=== PATIENT | female | born 1965 | race Caucasian/White ===

== ENCOUNTER → 2016-10-15 | Outpatient (CLI) | payer OTHER ==
--- NOTE | 2016-10-15 11:23 | MM ---
Reason for exam: clinical finding. Last mammogram was performed 11 years and 9 months ago. History: Patient is postmenopausal. Physical Findings: Nurse did not find any significant physical abnormalities on exam. MG Diagnostic Mammo w CAD JOAQUÍN Bilateral CC and MLO view(s) were taken. Prior study comparison: February 21, 2008, mammogram. There are scattered fibroglandular densities. Asymmetric breast tissue in the left breast, complex on ultrasound. These results were verbally communicated with the patient and result sheet given to the patient on 10/15/16. ASSESSMENT: Suspicious, BI-RAD 4 RECOMMENDATION: Aspiration of the left breast. Called Dr. Wilson with mammographic findings and has scheduled an appointment for the patient for 11/01/16 at 1:[address] Ch. Aspiration scheduled for 10/25/16 at 8:00. PRELIMINARY REPORT CALLED AND FAXED TO DR. CH ON 10/15/16 /TP.
--- NOTE | 2016-10-15 11:25 | USB ---
Reason for exam: clinical finding. History: Patient is postmenopausal. US Breast BILAT Right breast ultrasound includes all four quadrants, the retroareolar region and axilla. Finding demonstrates a 3mm oval, cystic lesion at 2 o'clock, a 7 x 5 x 5mm cystic, complex lesion at 9 o'clock and a 5 x 4 x 4mm mixed lesion at 9 o'clock for which an aspiration/biopsy is recommended. Left breast ultrasound includes all four quadrants, the retroareolar region and axilla. Finding demonstrates a 15 x 11 x 11mm irregular, solid, hypoechoic lesion at 1 o'clock for which an aspiration is recommended. These results were verbally communicated with the patient and result sheet given to the patient on 10/15/16. ASSESSMENT: Suspicious, BI-RAD 4 RECOMMENDATION: Aspiration of both breasts. Called Dr. Wilson with mammographic findings and has scheduled an appointment for the patient for 11/01/16 at 1:[address] Ch. Aspiration scheduled for 10/25/16 at 8:00. PRELIMINARY REPORT CALLED AND FAXED TO DR. CH ON 10/15/16 /TP.
== END | disposition home or self-care (01) ==
LOC: RADMAMWWP 08:16
PROVIDERS: ATTEND Internal Medicine
DX: N63 Unspecified lump in breast (principal); Z80.3 Family history of malignant neoplasm of breast
CPT/HCPCS: 76641; G0204

== ENCOUNTER → 2019-04-18 | Outpatient (CLI) | payer OTHER ==
--- NOTE | 2019-04-19 11:16 | MM ---
Reason for exam: screening (asymptomatic). Last mammogram was performed 2 years and 6 months ago. History: Patient is postmenopausal. Family history of breast cancer in sister at age 42. Benign US breast fine needle asp of the left breast, October 25, 2016. Benign US breast fine needle asp of the right breast, October 25, 2016. Physical Findings: A clinical breast exam by your physician is recommended on an annual basis and results should be correlated with mammographic findings. MG Screening Mammo w CAD Bilateral CC and MLO view(s) were taken. Prior study comparison: October 25, 2016, bilateral MG diagnostic blanca BI wo CAD. October 15, 2016, bilateral MG diagnostic mammo w CAD JOAQUÍN. The breast tissue is heterogeneously dense. This may lower the sensitivity of mammography. Finding #1: There is a 6 mm circumscribed round mass located 2 cm from the nipple in the lower inner quadrant, anterior position of the left breast immedialy next to benign round 3mm calcification. Finding #2: There are typically benign round calcifications in both breasts. Previous mammotome biopsy in the right and left breast. New finding since October 25, 2016 and October 15, 2016. ASSESSMENT: Incomplete: need additional imaging evaluation, BI-RAD 0 RECOMMENDATION: Ultrasound of the left breast. [facility] will attempt to contact patient to return for ultrasound.
== END | disposition home or self-care (01) ==
LOC: RADMAMWWP 16:34
PROVIDERS: ATTEND Family Medicine
DX: Z12.31 Encounter for screening mammogram for malignant neoplasm of breast (principal)
CPT/HCPCS: 77067

== ENCOUNTER → 2019-04-27 | Outpatient (CLI) | payer OTHER ==
--- NOTE | 2019-04-27 12:51 | USB ---
Reason for exam: additional evaluation requested from abnormal screening. History: Patient is postmenopausal. Family history of breast cancer in sister at age 42. Benign US breast fine needle asp of the left breast, October 25, 2016. Benign US breast fine needle asp of the right breast, October 25, 2016. Physical Findings: Nurse Summary: left breast palpable 8 o'clock left brast 0.5 x 0.5cm, tender, movable (nurse ts). US Breast Workup Limited LT Technologist: Linda Hastings Left limited breast ultrasound including focal area of concern, retroareolar and axilla demonstrates a 0.6 x 0.6 x 0.5cm lesion at 8 o'clock, no post enhancement, cyst aspiration/biopsy recommended and a 0.3 x 0.1 x 0.3cm questionable calcification at 8 o'clock. These results were verbally communicated with the patient and result sheet given to the patient on 04/27/19. ASSESSMENT: Suspicious, BI-RAD 4 RECOMMENDATION: Ultrasound core biopsy of the left breast. (cyst aspiration can be attempted) Called with mammographic findings and has scheduled an appointment for the patient for 05/01/19 at 4:[address] Rojo. PRELIMINARY REPORT CALLED AND FAXED TO DR. ROJO ON 04/27/19.
== END | disposition home or self-care (01) ==
LOC: RADUSWWP 09:34
PROVIDERS: ATTEND Family Medicine
DX: R92.8 Other abnormal and inconclusive findings on diagnostic imaging of breast (principal)

== ENCOUNTER → 2019-05-09 | Day surgery (SDC) | payer OTHER ==
[2019-05-09 13:34] VITALS: RESP 16
[2019-05-09 14:51] VITALS: BP 114/70; PULSE 78; TEMP 98.3
--- NOTE | 2019-05-09 16:00 | USB ---
EXAMINATION TYPE: US breast aspiration single LT DATE OF EXAM: 05/09/2019 CLINICAL HISTORY: R98.2 abnormal mammogram. TECHNIQUE: Ultrasound guided cyst aspiration left breast COMPARISON: NONE FINDINGS: The ultrasound guided cyst aspiration procedure was explained to the patient. The risks, benefits, alternatives were discussed. An informed consent was then obtained. Timeout was performed. The patient was placed in supine positioning for imaging and for the procedure. The overlying skin was prepped with betadine and sterilely draped in usual sterile fashion. Lidocaine 1% was used as anesthetic into the skin and deeper breast tissue up to area of concern in the breast. Under ultrasound guidance, an 18-gauge spinal needle was advanced into the cyst like area and aspiration was performed. A minimal drop may have been aspirated. There was complete collapse of the suspected cyst under observation. Of this area appeared less suspicious than the comparison. However, septation was present in the level of concern within the patient was sufficient to warrant aspiration. A ribbon clip was placed at the cyst aspiration site which is adjacent to a calcification. Good hemostasis was obtained with direct pressure. Discharge instructions were discussed with the patient. The patient will follow up with the referring physician for results. Postprocedure mammogram: The patient was transferred to mammography for physician ordered post procedure mammogram for clip placement verification. The clip is in the expected region of the biopsy. The patient tolerated the procedure well without any immediate complication. The patient was discharged to home in stable condition. IMPRESSION: 1. Successful ultrasound guided cyst aspiration left breast. Pathology Results: Benign LEFT BREAST, CYST AT EIGHT O'CLOCK POSITION, ASPIRATION: Apocrine cells, bland duct lining cells, red cells, macrophages and debris consistent with breast cyst contents. Features diagnostic of a solid neoplasm or any other solid lesion are not identified. Clinical correlation is suggested. Recommendation Follow up mammogram of the left breast in 6 months. TIMOD
--- NOTE | 2019-05-09 16:01 | MM ---
EXAMINATION TYPE: US breast aspiration single LT DATE OF EXAM: 05/09/2019 CLINICAL HISTORY: R98.2 abnormal mammogram. TECHNIQUE: Ultrasound guided cyst aspiration left breast COMPARISON: NONE FINDINGS: The ultrasound guided cyst aspiration procedure was explained to the patient. The risks, b enefits, alternatives were discussed. An informed consent was then obtained. Timeout was performed. The patient was placed in supine positioning for imaging and for the procedure. The overlying skin w as prepped with betadine and sterilely draped in usual sterile fashion. Lidocaine 1% was used as ane sthetic into the skin and deeper breast tissue up to area of concern in the breast. Under ultrasound guidance, an 18-gauge spinal needle was advanced into the cyst like area and aspirat ion was performed. A minimal drop may have been aspirated. There was complete collapse of the suspect ed cyst under observation. Of this area appeared less suspicious than the comparison. However, septat ion was present in the level of concern within the patient was sufficient to warrant aspiration. A ribbon clip was placed at the cyst aspiration site which is adjacent to a calcification. Good hemostasis was obtained with direct pressure. Discharge instructions were discussed with the danny cottrell. The patient will follow up with the referring physician for results. Postprocedure mammogram: The patient was transferred to mammography for physician ordered post proced ure mammogram for clip placement verification. The clip is in the expected region of the biopsy. The patient tolerated the procedure well without any immediate complication. The patient was dischar ged to home in stable condition. IMPRESSION: 1. Successful ultrasound guided cyst aspiration left breast.
== END ==
LOC: RADUSWWP 13:19
PROVIDERS: ATTEND Surgery
DX: N60.02 Solitary cyst of left breast (principal)
CPT/HCPCS: 88108; 77065; 76942; 19000; A4648; J2001

== ENCOUNTER → 2019-05-18 | Outpatient (CLI) | payer OTHER ==
--- NOTE | 2019-05-18 15:50 | XR ---
EXAMINATION TYPE: XR knee complete bilateral DATE OF EXAM: 05/18/2019 CLINICAL HISTORY: Chronic bilateral knee pain TECHNIQUE: Three views of the bilateral knees were obtained. COMPARISON: None. FINDINGS: There is no acute fracture/dislocation evident in either knee. The tri-compartment joint spaces appear aligned. There is mild medial compartment joint space narrowing on the right and very s mall patellar osteophytes. Similarly on the left there is very mild medial compartment joint space na rrowing and small patellar osteophytes. No radiographic suprapatellar joint effusion bilaterally. Ext ensor mechanism is grossly intact bilaterally. The overlying soft tissue appears unremarkable. IMPRESSION: 1. Mild bicompartmental arthropathy bilaterally. 2. No acute fracture or dislocation in either knee.
== END | disposition home or self-care (01) ==
LOC: RADXRMAIN 14:15
PROVIDERS: ATTEND Family Medicine
DX: M12.862 Other specific arthropathies, not elsewhere classified, left knee (principal); M12.861 Other specific arthropathies, not elsewhere classified, right knee

== ENCOUNTER → 2019-11-07 | Outpatient (CLI) | payer OTHER ==
--- NOTE | 2019-11-07 10:17 | USB ---
Reason for exam: follow-up at short interval from prior study. History: Patient is postmenopausal. Family history of breast cancer in sister at age 42. Benign US breast aspiration single LT of the left breast, May 09, 2019. Benign US breast fine needle asp of the left breast, October 25, 2016. Benign US breast fine needle asp of the right breast, October 25, 2016. Physical Findings: Nurse Summary: all soft, nodular, movable (nurse ts). US Breast Limited LT Left limited breast ultrasound including focal area of concern, retroareolar and axilla demonstrates a 0.3 x 0.3 x 0.3cm lesion at 7 o'clock. These results were verbally communicated with the patient and result sheet given to the patient on 11/07/19. ASSESSMENT: Benign, BI-RAD 2 RECOMMENDATION: Return to routine screening mammogram schedule for both breasts. Back on schedule for March 2020.
== END | disposition home or self-care (01) ==
LOC: RADUSWWP 09:02
PROVIDERS: ATTEND Surgery
DX: R92.8 Other abnormal and inconclusive findings on diagnostic imaging of breast (principal)

== ENCOUNTER → 2020-04-21 | Outpatient (CLI) | payer OTHER ==
--- NOTE | 2020-04-22 13:43 | MM ---
Reason for exam: screening (asymptomatic). Last mammogram was performed 11 months ago. History: Patient is postmenopausal. Family history of breast cancer in sister at age 42. Benign US breast aspiration single LT of the left breast, May 09, 2019. Benign US breast fine needle asp of the left breast, October 25, 2016. Benign US breast fine needle asp of the right breast, October 25, 2016. Physical Findings: A clinical breast exam by your physician is recommended on an annual basis and results should be correlated with mammographic findings. MG Screening Mammo w CAD Bilateral CC and MLO view(s) were taken. Prior study comparison: May 09, 2019, left breast MG diagnostic mammo LT wo CAD. April 18, 2019, bilateral MG screening mammo w CAD. Finding: There are new coarse heterogeneous, grouped/clustered calcifications in the 4-5 o'clock lower outer quadrant, anterior position of the left breast. Previous mammotome biopsy in the right and left breast. New finding since May 09, 2019. ASSESSMENT: Incomplete: need additional imaging evaluation, BI-RAD 0 RECOMMENDATION: Special view mammogram of the left breast. [facility] will attempt to contact patient to return for supplemental views.
== END | disposition home or self-care (01) ==
LOC: RADMAMWWP 13:09
PROVIDERS: ATTEND Surgery
DX: Z12.31 Encounter for screening mammogram for malignant neoplasm of breast (principal)
CPT/HCPCS: 77067

== ENCOUNTER → 2020-04-30 | Outpatient (CLI) | payer OTHER ==
--- NOTE | 2020-04-30 10:17 | MM ---
Reason for exam: additional evaluation requested from abnormal screening. Last mammogram was performed less than 1 month ago. History: Patient is postmenopausal. Family history of breast cancer in sister at age 42. Benign US breast aspiration single LT of the left breast, May 09, 2019. Benign US breast fine needle asp of the left breast, October 25, 2016. Benign US breast fine needle asp of the right breast, October 25, 2016. Physical Findings: Nurse did not find any significant physical abnormalities on exam. MG Work Up Mamm w CAD LT CC with magnification, LM with magnification, and CCRL view(s) were taken of the left breast. Prior study comparison: April 21, 2020, bilateral MG screening mammo w CAD. May 09, 2019, left breast MG diagnostic mammo LT wo CAD. There are scattered fibroglandular densities. Previous mammotome biopsy in the left breast x 2. New grouped calcifications anterior left breast. One of these calcifications layer suggesting milk of calcium. But other calcifications in this group are indeterminate. These results were verbally communicated with the patient and result sheet given to the patient on 04/30/20. ASSESSMENT: Suspicious, BI-RAD 4 RECOMMENDATION: Stereotactic core biopsy of the left breast. Called with mammographic findings and has scheduled an appointment for the patient for 05/01/20 at 2:[address] Rojo. PRELIMINARY REPORT CALLED AND FAXED TO DR. ROJO ON 04/30/20.
== END | disposition home or self-care (01) ==
LOC: RADMAMWWP 08:59
PROVIDERS: ATTEND Surgery
DX: R92.8 Other abnormal and inconclusive findings on diagnostic imaging of breast (principal)
CPT/HCPCS: 77065

== ENCOUNTER → 2020-05-09 | Day surgery (SDC) | payer OTHER ==
[2020-05-09 09:40] VITALS: RESP 16; TEMP 98.1
[2020-05-09 10:43] VITALS: BP 119/68; PULSE 5
--- NOTE | 2020-05-09 15:02 | MM ---
EXAMINATION TYPE: MG stereo VAD BX LT DATE OF EXAM: 05/09/2020 COMPARISON: 04/30/2020 CLINICAL HISTORY: Abnormal mammogram TECHNIQUE: Stereotactic guided core biopsy of left breast. FINDINGS: The procedure of stereotactic guided core biopsy was explained to the patient. Benefits, alternatives, and risks were discussed. An informed consent was then obtained. The shortness pathway for biopsy was chosen. Shortness pathway was inferior caudal cranial approach. Targeting and the procedure were performed by radiology. A vacuum assisted biopsy gun was used to obtain 7 core samples. The skin was cleansed with Betadine. Skin and deeper breast tissue was anesthetized with 1% lidocaine. Small skin incision was made. Needle was advanced and positioning was confirmed. 7 core samples were obtained with a vacuum assisted biopsy device. Core marker was placed at the biopsy site. Good hemostasis was obtained with direct pressure. Discharge instructions were discussed with the patient. Patient will follow-up with her physician for the results. Specimen: Specimen radiograph demonstrates the targeted calcifications within the specimen. Post procedure mammogram: Core marker is within the expected location, calcifications appear to be resected and The patient tolerated the procedure well without any immediate complication. The patient was kept in the radiology department for short stay after the procedure and then discharged home in stable condition. Targeted calcifications are identified in specimen mammogram. Post biopsy mammogram shows the clip to appear in satisfactory position relative to the targeted area of concern on the preprocedure images. IMPRESSION: 1. Successful stereotactic core biopsy left breast calcifications. Recommendations: 1. Recommendations are pending pathology results. Pathology Results: Benign LEFT BREAST, CORE BIOPSY: Collagenous fibrosis with focal cystic change, chronic inflammation, focal mild usual ductal hyperplasia, focal microcalcification, fibrocystic change with apocrine metaplasia, and benign focal adenosis (see note). Recommendation Follow up mammogram of the left breast in 6 months. BÁRBARA
== END ==
LOC: RADUSWWP 08:59
PROVIDERS: ATTEND Surgery
DX: N60.12 Diffuse cystic mastopathy of left breast (principal); N61.0 Mastitis without abscess; R92.0 Mammographic microcalcification found on diagnostic imaging of breast; N60.82 Other benign mammary dysplasias of left breast; N60.22 Fibroadenosis of left breast
CPT/HCPCS: 88305; 88342; 88341; 19081; J2001

== ENCOUNTER → 2020-11-07 | Outpatient (CLI) | payer OTHER ==
--- NOTE | 2020-11-11 12:15 | MM ---
Reason for exam: follow-up at short interval from prior study. Last mammogram was performed 6 months ago. History: Patient is postmenopausal. Family history of breast cancer in sister at age 42. Benign MG stereo VAD BX LT of the left breast, May 09, 2020. Benign US breast aspiration single LT of the left breast, May 09, 2019. Benign US breast fine needle asp of the left breast, October 25, 2016. Benign US breast fine needle asp of the right breast, October 25, 2016. Physical Findings: Nurse did not find any significant physical abnormalities on exam. MG Diagnostic Mammo LT w CAD CC and MLO view(s) were taken of the left breast. Prior study comparison: April 21, 2020, bilateral MG screening mammo w CAD. November 07, 2019, left breast US breast limited LT. There are scattered fibroglandular densities. There are benign appearing round calcifications in the left breast. Previous mammotome biopsy in the left breast x 3. There is no discrete abnormality. These results were verbally communicated with the patient and result sheet given to the patient on 11/07/20. ASSESSMENT: Benign, BI-RAD 2 RECOMMENDATION: Return to routine screening mammogram schedule for both breasts. Back on schedule for April 2021.
== END | disposition home or self-care (01) ==
LOC: RADMAMWWP 13:23
PROVIDERS: ATTEND Surgery
DX: Z53.9 Procedure and treatment not carried out, unspecified reason (principal)
CPT/HCPCS: 77065

== ENCOUNTER 2020-11-20 09:39 | Day surgery (SDC) | payer OTHER ==
[2020-11-17 15:33] VITALS: BMI 28.5
[~2020-11-20 09:39] MED LIST: LACTATED RINGERS 1,000 ML IV SCH; LIDOCAINE 1% (10MG/ML) FOR IV START INTRADERMA PRN; MIDAZOLAM 2 MG/2 ML VIAL IV PRN
[2020-11-20 10:06] VITALS: TEMP 97
[2020-11-20] MEDS ORDERED: PROPOFOL 10 MG/ML 20 ML VIAL IV ONE (11:31)
[2020-11-20] MEDS ORDERED: LIDOCAINE 1% INJ 10MG/ML (20 ML MDV) ONE (11:31)
--- NOTE | 2020-11-20 11:51 | P.GSHP ---
History of Present Illness H&P Date: 11/20/20 Chief Complaint: Screening colonoscopy This a 55-year-old female presents today for screening colonoscopy. Patient denies a significant GI complaints. Past Medical History Past Medical History: Hyperlipidemia, Osteoarthritis (OA) Additional Past Medical History / Comment(s): Irritable Bowel Syndrome. History of Any Multi-Drug Resistant Organisms: None Reported Past Surgical History: Breast Surgery, Hysterectomy, Tubal Ligation Additional Past Surgical History / Comment(s): 1/2 of right ovary removed, left ovary taken later, bilateral breast biopsies and cysts aspirated. Past Anesthesia/Blood Transfusion Reactions: No Reported Reaction Past Psychological History: Anxiety, Depression Smoking Status: Current every day smoker Past Alcohol Use History: None Reported Additional Past Alcohol Use History / Comment(s): Smoker of 1ppd X 40 yrs. Past Drug Use History: Marijuana Additional Drug Use History / Comment(s): Uses Marijuana twice daily. - Past Family History Sister(s) Family Medical History: Cancer Additional Family Medical History / Comment(s): Breast cancer. Medications and Allergies Home Medications Medication Instructions Recorded Confirmed Type Acyclovir [Zovirax] 800 mg PO DAILY 10/19/16 11/17/20 History Dicyclomine [Bentyl] 10 mg PO BID PRN 10/19/16 11/17/20 History ALPRAZolam [Xanax] 0.5 mg PO HS 05/02/19 11/17/20 History Gabapentin [Neurontin] 300 mg PO BID 05/02/19 11/17/20 History Simvastatin [Zocor] 20 mg PO HS 05/02/19 11/17/20 History Escitalopram [Lexapro] 10 mg PO DAILY 05/05/20 11/17/20 History Naproxen 500 mg PO BID 05/05/20 11/17/20 History Allergies Allergy/AdvReac Type Severity Reaction Status Date / Time codeine AdvReac Vomiting Verified 11/20/20 10:01 Surgical - Exam Vital Signs Temp Pulse Resp BP Pulse Ox 97 F L 58 L 16 120/61 98 11/20/20 10:05 11/20/20 10:05 11/20/20 10:05 11/20/20 10:05 11/20/20 10:05 - General well developed, well nourished, no distress - Eyes PERRL - ENT normal pinna - Neck no masses - Respiratory normal expansion - Cardiovascular Rhythm: regular - Abdomen Abdomen: soft, non tender Assessment and Plan Assessment: We'll perform screening colonoscopy
--- NOTE | 2020-11-20 11:52 | P.OP ---
Date of Procedure: 11/20/20 Preoperative Diagnosis: Screening colonoscopy Postoperative Diagnosis: co normal colonoscopy seble Procedure(s) Performed: Colonoscopy Anesthesia: MAC Surgeon: Imtiaz Rojo Pathology: none sent Condition: stable Disposition: PACU Description of Procedure: PROCEDURE: The patient was placed on the endoscopy table in the lateral position. Digital rectal examination was performed which revealed no abnormalities. Flexible colonoscope was then placed in the patient's anus and passed throughout the entire colon. The ileocecal valve was visualized. The cecum, ascending, transverse, descending and sigmoid colon were normal. The rectum was normal as well. There were no masses, polyps or diverticula noted in the entire colon. SUMMARY OF FINDINGS: Normal colonoscopy.
[2020-11-20 12:06] VITALS: BP 110/77; PULSE 55; RESP 16
== END 2020-11-20 12:39 | disposition home or self-care (01) ==
LOC: ORWHC2ENDO 09:39
PROVIDERS: ATTEND Surgery
DX: Z12.11 Encounter for screening for malignant neoplasm of colon (principal); E78.5 Hyperlipidemia, unspecified; M19.90 Unspecified osteoarthritis, unspecified site; F17.210 Nicotine dependence, cigarettes, uncomplicated; K58.9 Irritable bowel syndrome, unspecified; F41.9 Anxiety disorder, unspecified; F32.9 Major depressive disorder, single episode, unspecified; Z79.899 Other long term (current) drug therapy; Z88.5 Allergy status to narcotic agent
CPT/HCPCS: J2001; J2704; G0121

== ENCOUNTER → 2020-12-26 | Outpatient (CLI) | payer OTHER ==
--- NOTE | 2020-12-26 12:12 | USB ---
Reason for exam: clinical finding. History: Patient is postmenopausal. Family history of breast cancer in sister at age 42. Benign MG stereo VAD BX LT of the left breast, May 09, 2020. Benign US breast aspiration single LT of the left breast, May 09, 2019. Benign US breast fine needle asp of the left breast, October 25, 2016. Benign US breast fine needle asp of the right breast, October 25, 2016. Physical Findings: Nurse Summary: bilateral tenderness on exam, all soft, movable (nurse ts). US Breast BILAT Right complete breast ultrasound includes all four quadrants, the retroareolar region and axilla. Finding demonstrates a 0.6 x 0.3 x 0.5cm cystic cluster at 12 o'clock and a 0.3 x 0.3 x 0.3cm lesion too small to characterize at 9 o'clock. Left complete breast ultrasound includes all four quadrants, the retroareolar region and axilla. Finding demonstrates a 0.3 x 0.3 x 0.3cm lesion too small to characterize at 7 o'clock and a 0.8 x 0.9 x 1.0cm solid lesion at 11 o'clock. These results were verbally communicated with the patient and result sheet given to the patient on 12/26/20. ASSESSMENT: Suspicious, BI-RAD 4 RECOMMENDATION: Ultrasound core biopsy of the left breast. Called Dr. Junior's office with mammographic findings and has scheduled an appointment for the patient for 12/30/20 at 3:[address] Rojo. PRELIMINARY REPORT CALLED AND FAXED TO DR. ROJO ON 12/26/20.
== END | disposition home or self-care (01) ==
LOC: RADUSWWP 09:30
PROVIDERS: ATTEND Family Medicine
DX: N64.89 Other specified disorders of breast (principal); Z80.3 Family history of malignant neoplasm of breast

== ENCOUNTER → 2021-01-14 | Day surgery (SDC) | payer OTHER ==
[2021-01-14 07:29] VITALS: BP 117/78; PULSE 64; RESP 16; TEMP 98.9
--- NOTE | 2021-01-14 15:22 | USB ---
EXAMINATION TYPE: US discontinued breast bx LT DATE OF EXAM: 01/14/2021 CLINICAL HISTORY: Previous abnormal breast ultrasound. TECHNIQUE: Planned Ultrasound guided vaccuum assisted core biopsy of left breast. COMPARISON: NONE FINDINGS: The ultrasound guided core biopsy procedure was explained to the patient. The risks, benef its, alternatives were discussed. An informed consent was then obtained. Timeout was performed. The patient was placed in supine positioning for imaging and for the procedure. The patient was pres canned. Real-time observation. Realtime scanning, in comparison with the prior examinations was perfo rmed. A persistent suspicious irregular hypodensity was not identified. There appears to be normal br east tissue present in the expected region. Procedure was terminated prior to skin incision. A precautionary short-term follow-up will be perform ed. This was discussed with the patient. The patient was discharged to home in stable condition. IMPRESSION: 1. Probably benign findings. 2. BI-RADS 3. Recommendations: 1. Follow-up left breast ultrasound in 6 months with attention to the 11:00 BC position. 2. Patient should continue monthly self breast exam. 3. Negative ultrasound should not preclude biopsy of clinically suspicious palpable abnormalities.
== END ==
LOC: RADUSWWP 07:06
PROVIDERS: ATTEND Surgery
DX: R92.8 Other abnormal and inconclusive findings on diagnostic imaging of breast (principal); Z53.9 Procedure and treatment not carried out, unspecified reason

== ENCOUNTER 2021-04-13 21:06 | Emergency (ER) | payer OTHER ==
[2021-04-13] MEDS ORDERED: MORPHINE SULFATE 4 MG/ML SYRINGE IV STA (21:36)
[2021-04-13] MEDS ORDERED: SODIUM CHLORIDE 0.9% 1,000 ML IV ONE (21:36)
--- NOTE | 2021-04-13 22:03 | XR ---
EXAMINATION TYPE: XR chest 1V portable DATE OF EXAM: 04/13/2021 COMPARISON: NONE HISTORY: Fever. Short of breath TECHNIQUE: Single view FINDINGS: Heart is normal. Lungs are clear. Diaphragm is normal. Bony thorax is intact. IMPRESSION: Normal chest.
[2021-04-13 22:12] LABS: Basophils % (A) 0 %; Eosinophils # (A) 0.1 k/uL (0-0.7); Eosinophils % (A) 1 %; HCT 42.2 % (34.0-46.0); HGB 14.5 gm/dL (11.4-16.0); Lymphocytes # (A) 1.8 k/uL (1.0-4.8); Lymphocytes % (A) 16 %; MCH 32.7 pg (25.0-35.0); MCHC 34.3 g/dL (31.0-37.0); MCV 95.4 fL (80.0-100.0); Mean Platelet Volume 7.9; Monocytes # (A) 0.5 k/uL (0-1.0); Monocytes % (A) 4 %; Neutrophils # (A) 8.4 k/uL (1.3-7.7); Neutrophils % (A) 76 %; Platelet Count 260 k/uL (150-450); RBC 4.43 m/uL (3.80-5.40); RDW 12.7 % (11.5-15.5); WBC 11.2 k/uL (3.8-10.6)
--- NOTE | 2021-04-13 22:16 | ED ---
General Adult HPI - General Chief complaint: Upper Respiratory Infection Stated complaint: SOB,Back Pain,chills Time Seen by Provider: 04/13/21 21:18 Source: patient Mode of arrival: ambulatory Limitations: no limitations - History of Present Illness Onset/Timin -: week(s) Location: back Radiation: non-radiation Quality: aching Consistency: constant Improves with: none Worsens with: none Associated Symptoms: cough, fever/chills, headaches, malaise - Related Data Home Medications Medication Instructions Recorded Confirmed ALPRAZolam [Xanax] 0.5 mg PO HS PRN 05/02/19 04/13/21 Gabapentin [Neurontin] 300 mg PO TID PRN 05/02/19 04/13/21 Simvastatin [Zocor] 20 mg PO HS 05/02/19 04/13/21 Naproxen 500 mg PO BID 05/05/20 04/13/21 Dicyclomine [Bentyl] 20 mg PO TID PRN 04/13/21 04/13/21 Phenyleph/Acetaminophn/Doxylam 1 cap PO Q4H PRN 04/13/21 04/13/21 [Vicks Dayquil-Nyquil Sinex Cap] Vitamin B Complex/With Vit C 1 tab PO DAILY 04/13/21 04/13/21 guaiFENesin [Mucinex] 600 mg PO BID PRN 04/13/21 04/13/21 Previous Rx's Medication Instructions Recorded Cephalexin [Keflex] 500 mg PO Q6HR #28 cap 04/14/21 Allergies Allergy/AdvReac Type Severity Reaction Status Date / Time codeine AdvReac Vomiting Verified 04/13/21 21:44 sulfamethoxazole AdvReac Nausea & Verified 04/13/21 21:44 [From Bactrim] Vomiting trimethoprim [From Bactrim] AdvReac Nausea & Verified 04/13/21 21:44 Vomiting Review of Systems ROS Statement: Those systems with pertinent positive or pertinent negative responses have been documented in the HPI. ROS Other: All systems not noted in ROS Statement are negative. Constitutional: Reports: fever, chills. Denies: weakness ENT: Reports: congestion Respiratory: Reports: cough. Denies: dyspnea, wheezes Cardiovascular: Denies: chest pain, palpitations, edema, syncope Gastrointestinal: Denies: abdominal pain, vomiting, diarrhea, constipation Genitourinary: Denies: dysuria, hematuria Musculoskeletal: Reports: back pain, myalgia Skin: Denies: rash Neurological: Reports: headache. Denies: weakness, numbness Past Medical History Past Medical History: Hyperlipidemia, Osteoarthritis (OA) Additional Past Medical History / Comment(s): Irritable Bowel Syndrome. History of Any Multi-Drug Resistant Organisms: None Reported Past Surgical History: Breast Surgery, Hysterectomy, Tubal Ligation Additional Past Surgical History / Comment(s): 1/2 of right ovary removed, left ovary taken later, bilateral breast biopsies and cysts aspirated. Past Anesthesia/Blood Transfusion Reactions: No Reported Reaction Past Psychological History: Anxiety, Depression Smoking Status: Current every day smoker Past Alcohol Use History: None Reported Past Drug Use History: Marijuana - Past Family History Sister(s) Family Medical History: Cancer Additional Family Medical History / Comment(s): Breast cancer. General Exam Limitations: no limitations General appearance: alert, in no apparent distress Head exam: Present: atraumatic, normocephalic Eye exam: Present: normal appearance. Absent: scleral icterus, conjunctival injection Neck exam: Present: normal inspection Respiratory exam: Present: normal lung sounds bilaterally. Absent: respiratory distress, wheezes, rales, rhonchi, stridor Cardiovascular Exam: Present: regular rate, normal rhythm, normal heart sounds. Absent: systolic murmur, diastolic murmur, rubs, gallop GI/Abdominal exam: Present: soft. Absent: distended, tenderness, guarding, rebound, rigid, mass Extremities exam: Present: normal inspection, normal capillary refill. Absent: pedal edema, calf tenderness Back exam: Present: normal inspection, paraspinal tenderness. Absent: CVA tenderness (R), CVA tenderness (L), vertebral tenderness Neurological exam: Present: alert Skin exam: Present: warm, dry, intact, normal color. Absent: rash Course Vital Signs 04/13/21 04/14/21 21:09 00:46 Temperature 100.4 F H 98.7 F Pulse Rate 98 74 Respiratory 20 16 Rate Blood Pressure 132/93 102/57 O2 Sat by Pulse 98 98 Oximetry Medical Decision Making - Lab Data Result diagrams: 04/13/21 22:04 04/13/21 22:04 Lab Results 04/13/21 04/13/21 04/13/21 Range/Units 21:43 22:04 22:04 WBC 11.2 H (3.8-10.6) k/uL RBC 4.43 (3.80-5.40) m/uL Hgb 14.5 (11.4-16.0) gm/dL Hct 42.2 (34.0-46.0) % MCV 95.4 (80.0-100.0) fL MCH 32.7 (25.0-35.0) pg MCHC 34.3 (31.0-37.0) g/dL RDW 12.7 (11.5-15.5) % Plt Count 260 (150-450) k/uL MPV 7.9 Neutrophils % 76 % Lymphocytes % 16 % Monocytes % 4 % Eosinophils % 1 % Basophils % 0 % Neutrophils # 8.4 H (1.3-7.7) k/uL Lymphocytes # 1.8 (1.0-4.8) k/uL Monocytes # 0.5 (0-1.0) k/uL Eosinophils # 0.1 (0-0.7) k/uL Basophils # 0.0 (0-0.2) k/uL D-Dimer 0.35 (<0.60) mg/L FEU Sodium (137-145) mmol/L Potassium (3.5-5.1) mmol/L Chloride (98-107) mmol/L Carbon Dioxide (22-30) mmol/L Anion Gap mmol/L BUN (7-17) mg/dL Creatinine (0.52-1.04) mg/dL Est GFR (CKD-EPI)AfAm (>60 ml/min/1.73 sqM) Est GFR (CKD-EPI)NonAf (>60 ml/min/1.73 sqM) Glucose (74-99) mg/dL Plasma Lactic Acid [place] (0.7-2.0) mmol/L Calcium (8.4-10.2) mg/dL Total Bilirubin (0.2-1.3) mg/dL AST (14-36) U/L ALT (4-34) U/L Alkaline Phosphatase (38-126) U/L Troponin I (0.000-0.034) ng/mL Total Protein (6.3-8.2) g/dL Albumin (3.5-5.0) g/dL Urine Color Urine Appearance (Clear) Urine pH (5.0-8.0) Ur Specific [place] (1.001-1.035) Urine Protein (Negative) Urine Glucose (UA) (Negative) Urine Ketones (Negative) Urine Blood (Negative) Urine Nitrite (Negative) Urine Bilirubin (Negative) Urine Urobilinogen (<2.0) mg/dL Ur Leukocyte Esterase (Negative) Urine RBC (0-5) /hpf Urine WBC (0-5) /hpf Ur Squamous Epith Cells (0-4) /hpf Urine Bacteria (None) /hpf Urine Mucus (None) /hpf Urine Yeast (Budding) (None) /hpf Coronavirus (PCR) Not Detected (Not Detectd) Influenza Type A RNA (Not Detectd) Influenza Type B (PCR) (Not Detectd) 04/13/21 04/13/21 04/13/21 Range/Units 22:04 22:04 22:04 WBC (3.8-10.6) k/uL RBC (3.80-5.40) m/uL Hgb (11.4-16.0) gm/dL Hct (34.0-46.0) % MCV (80.0-100.0) fL MCH (25.0-35.0) pg MCHC (31.0-37.0) g/dL RDW (11.5-15.5) % Plt Count (150-450) k/uL MPV Neutrophils % % Lymphocytes % % Monocytes % % Eosinophils % % Basophils % % Neutrophils # (1.3-7.7) k/uL Lymphocytes # (1.0-4.8) k/uL Monocytes # (0-1.0) k/uL Eosinophils # (0-0.7) k/uL Basophils # (0-0.2) k/uL D-Dimer (<0.60) mg/L FEU Sodium 138 (137-145) mmol/L Potassium 3.4 L (3.5-5.1) mmol/L Chloride 109 H (98-107) mmol/L Carbon Dioxide 17 L (22-30) mmol/L Anion Gap 12 mmol/L BUN 15 (7-17) mg/dL Creatinine 0.81 (0.52-1.04) mg/dL Est GFR (CKD-EPI)AfAm >90 (>60 ml/min/1.73 sqM) Est GFR (CKD-EPI)NonAf 83 (>60 ml/min/1.73 sqM) Glucose 105 H (74-99) mg/dL Plasma Lactic Acid [place] 0.9 (0.7-2.0) mmol/L Calcium 9.4 (8.4-10.2) mg/dL Total Bilirubin 1.0 (0.2-1.3) mg/dL AST 27 (14-36) U/L ALT 18 (4-34) U/L Alkaline Phosphatase 101 (38-126) U/L Troponin I <0.012 (0.000-0.034) ng/mL Total Protein 7.0 (6.3-8.2) g/dL Albumin 4.1 (3.5-5.0) g/dL Urine Color Urine Appearance (Clear) Urine pH (5.0-8.0) Ur Specific [place] (1.001-1.035) Urine Protein (Negative) Urine Glucose (UA) (Negative) Urine Ketones (Negative) Urine Blood (Negative) Urine Nitrite (Negative) Urine Bilirubin (Negative) Urine Urobilinogen (<2.0) mg/dL Ur Leukocyte Esterase (Negative) Urine RBC (0-5) /hpf Urine WBC (0-5) /hpf Ur Squamous Epith Cells (0-4) /hpf Urine Bacteria (None) /hpf Urine Mucus (None) /hpf Urine Yeast (Budding) (None) /hpf Coronavirus (PCR) (Not Detectd) Influenza Type A RNA (Not Detectd) Influenza Type B (PCR) (Not Detectd) 04/13/21 04/13/21 Range/Units 22:37 23:11 WBC (3.8-10.6) k/uL RBC (3.80-5.40) m/uL Hgb (11.4-16.0) gm/dL Hct (34.0-46.0) % MCV (80.0-100.0) fL MCH (25.0-35.0) pg MCHC (31.0-37.0) g/dL RDW (11.5-15.5) % Plt Count (150-450) k/uL MPV Neutrophils % % Lymphocytes % % Monocytes % % Eosinophils % % Basophils % % Neutrophils # (1.3-7.7) k/uL Lymphocytes # (1.0-4.8) k/uL Monocytes # (0-1.0) k/uL Eosinophils # (0-0.7) k/uL Basophils # (0-0.2) k/uL D-Dimer (<0.60) mg/L FEU Sodium (137-145) mmol/L Potassium (3.5-5.1) mmol/L Chloride (98-107) mmol/L Carbon Dioxide (22-30) mmol/L Anion Gap mmol/L BUN (7-17) mg/dL Creatinine (0.52-1.04) mg/dL Est GFR (CKD-EPI)AfAm (>60 ml/min/1.73 sqM) Est GFR (CKD-EPI)NonAf (>60 ml/min/1.73 sqM) Glucose (74-99) mg/dL Plasma Lactic Acid [place] (0.7-2.0) mmol/L Calcium (8.4-10.2) mg/dL Total Bilirubin (0.2-1.3) mg/dL AST (14-36) U/L ALT (4-34) U/L Alkaline Phosphatase (38-126) U/L Troponin I (0.000-0.034) ng/mL Total Protein (6.3-8.2) g/dL Albumin (3.5-5.0) g/dL Urine Color Yellow Urine Appearance Cloudy H (Clear) Urine pH 6.0 (5.0-8.0) Ur Specific [place] 1.024 (1.001-1.035) Urine Protein Trace H (Negative) Urine Glucose (UA) Negative (Negative) Urine Ketones 3+ H (Negative) Urine Blood Moderate H (Negative) Urine Nitrite Negative (Negative) Urine Bilirubin Negative (Negative) Urine Urobilinogen 3.0 (<2.0) mg/dL Ur Leukocyte Esterase Large H (Negative) Urine RBC 30 H (0-5) /hpf Urine WBC 94 H (0-5) /hpf Ur Squamous Epith Cells 35 H (0-4) /hpf Urine Bacteria Occasional H (None) /hpf Urine Mucus Few H (None) /hpf Urine Yeast (Budding) Rare H (None) /hpf Coronavirus (PCR) (Not Detectd) Influenza Type A RNA Not Detected (Not Detectd) Influenza Type B (PCR) Not Detected (Not Detectd) Disposition Clinical Impression: Acute upper respiratory infection, Urinary tract infection Disposition: HOME SELF-CARE Condition: Good Instructions (If sedation given, give patient instructions): Urinary Tract Infection in Women (ED) Prescriptions: Cephalexin [Keflex] 500 mg PO Q6HR #28 cap Is patient prescribed a controlled substance at d/c from ED?: No Referrals: Erasmo Junior Jr, [Primary Care Provider] - 1-2 days
[2021-04-13 22:30] LABS: ALT 18 U/L (4-34); AST 27 U/L (14-36); African American GFR (CKD) >90 (>60 ml/min/1.73 sqM); Albumin 4.1 g/dL (3.5-5.0); Alkaline Phosphatase 101 U/L (38-126); Anion Gap 12 mmol/L; Blood Urea Nitrogen 15 mg/dL (7-17); Calcium 9.4 mg/dL (8.4-10.2); Carbon Dioxide 17 mmol/L (22-30); Chloride 109 mmol/L (98-107); Glucose 105 mg/dL (74-99); Non-African American GFR(CKD) 83 (>60 ml/min/1.73 sqM); Potassium 3.4 mmol/L (3.5-5.1); Sodium 138 mmol/L (137-145)
[2021-04-13 23:51] LABS: Appearance,Urine Cloudy (Clear); Bacteria,Urine Occasional /hpf; Bilirubin,Urine Negative (Negative); Blood,Urine Moderate (Negative); Budding Yeast,Urine Rare /hpf; Color,Urine Yellow; Glucose,Urine (UA) Negative (Negative); Ketones,Urine 3+ (Negative); Leukocyte Esterase,Urine Large (Negative); Mucus,Urine Few /hpf; Nitrite,Urine Negative (Negative); Protein,Urine Trace (Negative); RBC,Urine 30 /hpf (0-5); Specific Gravity,Urine 1.024 (1.001-1.035); Squamous Epithelial Cell,Urine 35 /hpf (0-4); WBC,Urine 94 /hpf (0-5)
[2021-04-14 00:47] VITALS: BP 102/57; PULSE 74; RESP 16; TEMP 98.7
[2021-04-14] MEDS ORDERED: CEPHALEXIN 500MG STARTER PACK 4 CAP BTL PO STA (02:18)
== END 2021-04-14 02:29 | disposition home or self-care (01) ==
LOC: EC 21:06
DX: J06.9 Acute upper respiratory infection, unspecified (principal); N39.0 Urinary tract infection, site not specified; Z20.822 Contact with and (suspected) exposure to COVID-19; E78.5 Hyperlipidemia, unspecified; M19.90 Unspecified osteoarthritis, unspecified site; F32.A Depression, unspecified; F41.9 Anxiety disorder, unspecified; F17.200 Nicotine dependence, unspecified, uncomplicated; F12.90 Cannabis use, unspecified, uncomplicated; Z79.1 Long term (current) use of non-steroidal anti-inflammatories (NSAID); Z79.899 Other long term (current) drug therapy
CPT/HCPCS: 36415; 85379; 80053; 83605; 84484; 85025; 81001; 87502; 87635; 71045; 99284; 96365; 96375; 96361; J2270; J0696

== ENCOUNTER → 2023-02-09 | Outpatient (CLI) | payer OTHER ==
--- NOTE | 2023-02-14 01:08 | MM ---
Reason for Exam: Screening (asymptomatic). Last mammogram was performed 2 year(s) and 9 month(s) ago. Indicated Problems: Pain of the left side (Focal) for 3 Year(s) : at biopsy site. Patient History: Menarche at age 13. First Full-Term at age 19. Left ovary removed at age 27. Right ovary removed at age 27. Hysterectomy at age 27. Postmenopausal. Currently using Estrogen and Progesterone. 05/09/2020, Benign Core Biopsy on the left side. 05/09/2019, Benign Cyst Aspiration on the left side. 10/25/2016, Benign FNA Biopsy on the left side. 10/25/2016, Benign FNA Biopsy on the right side. 01/14/2021, US discontinued breast bx LT on the left side. Sister had breast cancer, age 42. Risk Values: Cassy 5 year model risk: 3.6%. NCI Lifetime model risk: 23.1%. Prior Study Comparison: 04/21/2020 Bilateral Screening Mammogram, [facility]. 04/30/2020 Left Diagnostic Mammogram, [facility]. 11/07/2020 Left Diagnostic Mammogram, [facility]. Tissue Density: There are scattered fibroglandular densities. Findings: Analyzed By CAD. There are 3 microclips seen in the left breast from prior biopsies. One microclip in the right breast. Areas of bilateral asymmetric densities remain unchanged. Overall Assessment: Benign, BI-RAD 2 Management: Screening Mammogram of both breasts in 1 year. SEE NOTE BELOW IN REGARDS TO PATIENT'S INCREASED 5 YEAR CASSY SCORE AND INCREASED LIFETIME RISK SCORE. Recommend further clinical management of patient's bilateral breast pain. Patient should continue monthly self-breast exams. A clinical breast exam by your physician is recommended on an annual basis. This exam should not preclude additional follow-up of suspicious palpable abnormalities. Note on Cassy scores and lifetime risk: 1. A Cassy score greater than 3% is considered moderate risk. If this is the case, consider specialist referral to assess eligibility for a risk reducing agent. 2. If overall lifetime risk for the development of breast cancer is 20% or higher, the patient may qualify for future screening with alternating mammogram and breast MRI. Electronically signed and approved by: Aashish Osborne M.D. Radiologist
== END | disposition home or self-care (01) ==
LOC: RADMAMWWP 09:34
PROVIDERS: ATTEND Family Medicine
DX: Z12.31 Encounter for screening mammogram for malignant neoplasm of breast (principal); Z78.0 Asymptomatic menopausal state; Z80.3 Family history of malignant neoplasm of breast
CPT/HCPCS: 77067

== ENCOUNTER → 2023-11-29 | Outpatient (CLI) | payer OTHER ==
--- NOTE | 2023-11-29 15:22 | NM ---
EXAMINATION TYPE: NM hepatobiliary w EF DATE OF EXAM: 11/29/2023 3:15 PM COMPARISON: CT abdomen pelvis most recent from 05/08/2022 CLINICAL INDICATION:Female, 58 years old with history of R07.9 CHEST PAIN; TECHNIQUE: The patient was given 4.91 mCi of Technetium 99m-Mebrofenin as a radiotracer and multiple scintigraphic images were obtained of the abdomen. Gallbladder function was also assessed after the administration of ensure drink and additional scintigraphic images were obtained of the abdomen. A re gion of interest was drawn over the gallbladder and a timing activity curve was generated. The gallbl adder ejection fraction was calculated. FINDINGS: Normal uptake of radiotracer was identified within the liver with excretion into the hepatic and comm on biliary ducts within 12 minutes. There was normal progressive washout of the liver over the course of the study. Radiotracer uptake within the gallbladder at 38 minutes as well as small bowel activit y was identified at 24 minutes. Maximum calculated gallbladder ejection fraction is: 45% at 30 minutes (Normal gallbladder ejection fraction is > 35%) IMPRESSION: 1. Normal hepatobiliary scan. 2. Normal ejection fraction.
== END | disposition home or self-care (01) ==
LOC: RADNMMAIN 12:56
PROVIDERS: ATTEND Family Medicine
DX: R07.9 Chest pain, unspecified (principal); R06.02 Shortness of breath; M25.512 Pain in left shoulder; M25.511 Pain in right shoulder; M54.9 Dorsalgia, unspecified
CPT/HCPCS: 78226

== ENCOUNTER 2024-07-16 10:08 | Emergency (ER) | payer OTHER ==
[2024-07-16 10:30] VITALS: TEMP 97.6
--- NOTE | 2024-07-16 10:43 | ED ---
Anxiety HPI - General Chief Complaint: Anxiety Stated Complaint: mental health Time Seen by Provider: 07/16/24 10:22 Source: patient, police, RN notes reviewed Mode of arrival: ambulatory - History of Present Illness Initial Comments: This is a 59-year-old female presenting for anxiety. Patient states she is becoming increasingly frustrated and anxious due to her neighbor trapping the feral cats she has been taking care of for the past 2 months. Patient states she is missing 2 cats and feels there is little she can do after contacting PD multiple times about her concerns. Patient states she attempted taking Xanax with minimal relief and left a message with her therapist who advised she come to the ER for further evaluation. Patient denies SI/HI, chest pain, dyspnea, extremity paresthesia, dizziness. MD Complaint: anxiety Onset/Timin -: days(s) Place: home Quality: intermittent Provoking factors: emotional stress - Related Data Home Medications: Home Medications Medication Instructions Recorded Confirmed ALPRAZolam [Xanax] 0.5 mg PO HS PRN 05/02/19 04/13/21 Gabapentin [Neurontin] 300 mg PO TID PRN 05/02/19 04/13/21 Simvastatin [Zocor] 20 mg PO HS 05/02/19 04/13/21 Naproxen 500 mg PO BID 05/05/20 04/13/21 Dicyclomine [Bentyl] 20 mg PO TID PRN 04/13/21 04/13/21 Phenyleph/Acetaminophn/Doxylam 1 cap PO Q4H PRN 04/13/21 04/13/21 [Vicks Dayquil-Nyquil Sinex Cap] Vitamin B Complex/With Vit C 1 tab PO DAILY 04/13/21 04/13/21 guaiFENesin [Mucinex] 600 mg PO BID PRN 04/13/21 04/13/21 Previous Rx's Medication Instructions Recorded Cephalexin [Keflex] 500 mg PO Q6HR #28 cap 04/14/21 Allergies/Adverse Reactions: Allergies Allergy/AdvReac Type Severity Reaction Status Date / Time codeine AdvReac Vomiting Verified 07/16/24 10:30 sulfamethoxazole AdvReac Nausea & Verified 07/16/24 10:30 [From Bactrim] Vomiting trimethoprim [From Bactrim] AdvReac Nausea & Verified 07/16/24 10:30 Vomiting Review of Systems ROS Statement: Those systems with pertinent positive or pertinent negative responses have been documented in the HPI. ROS Other: All systems not noted in ROS Statement are negative. Past Medical History Past Medical History: Hyperlipidemia, Osteoarthritis (OA) Additional Past Medical History / Comment(s): Irritable Bowel Syndrome. History of Any Multi-Drug Resistant Organisms: None Reported Past Surgical History: Breast Surgery, Hysterectomy, Tubal Ligation Additional Past Surgical History / Comment(s): 1/2 of right ovary removed, left ovary taken later, bilateral breast biopsies and cysts aspirated. Past Anesthesia/Blood Transfusion Reactions: No Reported Reaction Past Psychological History: Anxiety, Depression Smoking Status: Current every day smoker Past Alcohol Use History: None Reported Past Drug Use History: Marijuana - Past Family History Sister(s) Family Medical History: Cancer Additional Family Medical History / Comment(s): Breast cancer. General Exam Limitations: no limitations General appearance: alert, in distress (Tremor of hands noted) Head exam: Present: atraumatic, normocephalic, normal inspection Eye exam: Present: normal appearance, PERRL, EOMI. Absent: scleral icterus, conjunctival injection, periorbital swelling ENT exam: Present: normal exam, mucous membranes moist Neck exam: Present: normal inspection. Absent: tenderness, meningismus, lymphadenopathy Respiratory exam: Present: normal lung sounds bilaterally (Tachypnea noted). Absent: respiratory distress, wheezes, rales, rhonchi, stridor, accessory muscle use, decreased breath sounds, prolonged expiratory Cardiovascular Exam: Present: regular rate, normal rhythm, normal heart sounds. Absent: systolic murmur, diastolic murmur, rubs, gallop, clicks GI/Abdominal exam: Present: soft, normal bowel sounds. Absent: distended, tenderness, guarding, rebound, rigid Extremities exam: Present: normal inspection, full ROM, normal capillary refill. Absent: tenderness, pedal edema, joint swelling, calf tenderness Back exam: Present: normal inspection Neurological exam: Present: alert, oriented X3, CN II-XII intact Psychiatric exam: Present: normal affect, normal mood Skin exam: Present: warm, dry, intact, normal color. Absent: rash Course Vital Signs 07/16/24 07/16/24 10:26 12:20 Temperature 97.6 F Pulse Rate 100 80 Respiratory 20 18 Rate Blood Pressure 158/91 131/74 O2 Sat by Pulse 99 99 Oximetry Medical Decision Making - Medical Decision Making Was pt. sent in by a medical professional or institution (ISAI Bhardwaj, LDR NURSE, urgent care, hospital, or care home...) When possible be specific @ -Therapist Did you speak to anyone other than the patient for history (EMS, parent, family, police, friend...)? What history was obtained from this source @ -No Did you review nursing and triage notes (agree or disagree)? Why? @ -I reviewed and agree with nursing and triage notes Were old charts reviewed (outside hosp., previous admission, EMS record, old EKG, old radiological studies, urgent care reports/EKG's, care home records)? Report findings @ -No old charts were reviewed Differential Diagnosis (chest pain, altered mental status, abdominal pain women, abdominal pain men, vaginal bleeding, weakness, fever, dyspnea, syncope, h eadache, dizziness, GI bleed, back pain, seizure, CVA, palpatations, mental health, musculoskeletal)? @ -Differential Mental Health Depression, anxiety, bipolar, psychosis, schizophrenia, borderline personality, situational depression, adjustment disorder, behavioral disorder, brain tumor, malingering, substance abuse, encephalopathy, medication reaction, dementia, hypothyroidism, degenerative neurologic disorder, lupus.... This is not meant to be all-inclusive list EKG interpreted by me (3pts min.). @ -Sinus rhythm with RBBB. No ST deviation or T wave inversion. Ventricular rate 60 bpm, MARTÍN 165 ms, QRS 95 ms, QTc of 439 ms. X-rays interpreted by me (1pt min.). @ -None done CT interpreted by me (1pt min.). @ -None done U/S interpreted by me (1pt. min.). @ -None done What testing was considered but not performed or refused? (CT, X-rays, U/S, labs)? Why? @ -None What meds were considered but not given or refused? Why? @ -None Did you discuss the management of the patient with other professionals (professionals i.e. ISAI Bhardwaj, LDR NURSE, lab, RT, psych nurse, foster care social worker, retirement plan specialist, teacher, evp chief exploration officer, hospice case manager)? Give summary @ -No Was smoking cessation discussed for >3mins.? @ -No Was critical care preformed (if so, how long)? @ -No Were there social determinants of health that impacted care today? How? (Homelessness, low income, unemployed, alcoholism, drug addiction, transpor tation, low edu. Level, literacy, decrease access to med. care, detention, rehab)? @ -No Was there de-escalation of care discussed even if they declined (Discuss DNR or withdrawal of care, Hospice)? DNR status @ -No What co-morbidities impacted this encounter? (DM, HTN, Smoking, COPD, CAD, Cancer, CVA, ARF, Chemo, Hep., AIDS, mental health diagnosis, sleep apnea, morbid obesity)? @ -Anxiety Was patient admitted / discharged? Hospital course, mention meds given and route, prescriptions, significant lab abnormalities, going to OR and other pertinent info. @ -Normal EKG. Patient provided IM Valium with significant relief of anxiety noted by patient. Advised follow-up with psychiatrist and therapist for ongoing management of chronic and acute anxiety. Discussed patient with Dr. Herrera. Undiagnosed new problem with uncertain prognosis? @ -No Drug Therapy requiring intensive monitoring for toxicity (Heparin, Nitro, Insulin, Cardizem)? @ -No Were any procedures done? @ -No Diagnosis/symptom? @ -Panic attack Acute, or Chronic, or Acute on Chronic? @ -Acute Uncomplicated (without systemic symptoms) or Complicated (systemic symptoms)? @ -Uncomplicated Side effects of treatment? @ -No Exacerbation, Progression, or Severe Exacerbation? @ -No Poses a threat to life or bodily function? How? (Chest pain, [place], [place], pneumonia, PE, COPD, DKA, ARF, appy, cholecystitis, CVA, Diverticulitis, Homicidal, S uicidal, threat to staff... and all critical care pts) @ -No Disposition Clinical Impression: Panic attack Disposition: HOME SELF-CARE Condition: Good Instructions (If sedation given, give patient instructions): Generalized Anxiety Disorder (ED), Panic Attack (ED) Additional Instructions: Follow-up with PCP for ongoing management of acute on chronic anxiety. Is patient prescribed a controlled substance at d/c from ED?: No Referrals: Erasmo Junior Jr, DO [Primary Care Provider] - 1-2 days Time of Disposition: 11:43
[2024-07-16 12:49] VITALS: BP 131/74; PULSE 80; RESP 18
== END 2024-07-16 12:20 | disposition home or self-care (01) ==
LOC: EC 10:08
DX: F41.0 Panic disorder [episodic paroxysmal anxiety] (principal); F17.200 Nicotine dependence, unspecified, uncomplicated; Z88.1 Allergy status to other antibiotic agents; Z88.2 Allergy status to sulfonamides; Z88.5 Allergy status to narcotic agent
CPT/HCPCS: 93005; 99283; 96372; J3360